=== PATIENT | female | born 1950 | race Caucasian/White ===

== ENCOUNTER 2021-01-28 09:00 | Inpatient (IN) | payer OTHER ==
[~2021-01-28] VITALS: Ht 157.5 cm; Wt 111.1 kg
[2021-01-28] MEDS ORDERED: PLAVIX75 MG PO (09:47)
[2021-01-28] MEDS ORDERED: COREG PO (09:48)
[2021-01-28] MEDS ORDERED: LIPITOR PO (09:48)
[2021-01-28] MEDS ORDERED: CHILDREN'S ASPI81 MG (09:49)
[2021-01-28] MEDS ORDERED: CATAFLAN PO (09:49)
[2021-01-28] MEDS ORDERED: ATORVASTATIN CA40 MG PO (09:50)
[2021-02-02] MEDS ORDERED: GLIPIZIDE-METF1 EAC2 (13:18)
[2021-02-02] MEDS ORDERED: GABAPENTIN300 M2 (13:18)
[2021-02-02] MEDS ORDERED: DICLOFENAC POTA50 MG (13:18)
[2021-02-02] MEDS ORDERED: CARVEDILOL12.5 M1 (13:18)
[2021-02-02] MEDS ORDERED: FLONASE16 GM (13:19)
[2021-02-02] MEDS ORDERED: FAMOTIDINE40 MG (13:19)
[2021-02-02] MEDS ORDERED: MIRTAZAPINE15 MG (13:19)
[2021-02-02] MEDS ORDERED: ARNUITY ELLIP200 MCG (13:19)
[2021-02-02] MEDS ORDERED: ALLERGY RELIEF180 MG (13:19)
[2021-02-04] MEDS ORDERED: ELIQUIS2.5 MG PO (16:24)
[2021-02-04] MEDS ORDERED: PERCOCET 5-3251 EACH PO (16:24)
[2021-02-04] MEDS ORDERED: DUI500 PO (16:24)
== END 2021-02-04 19:27 | DRG 470 ==
LOC: O/R 02-02 05:09 → SURG 02-02 05:09 → SURH 02-02 09:00 → SURG 02-02 13:43
PROVIDERS: ADMIT Orthopaedic Surgery; ATTEND Orthopaedic Surgery
PROC: 0SRD0J9 Replacement of Left Knee Joint with Synthetic Substitute, Cemented, Open Approach (ICD-10-PCS; principal; 2021-02-02 12:00)
PROC: 30233N1 Transfusion of Nonautologous Red Blood Cells into Peripheral Vein, Percutaneous Approach (ICD-10-PCS; 2021-02-03)
DX: M17.12 Unilateral primary osteoarthritis, left knee (principal); D62 Acute posthemorrhagic anemia; Z95.1 Presence of aortocoronary bypass graft

== ENCOUNTER 2022-02-24 08:30 | Inpatient (IN) | payer OTHER ==
[~2022-02-24] VITALS: Ht 154.9 cm; Wt 110.7 kg
[~2022-02-24 08:30] MED LIST: ALLERGY RELIEF180 MG; ARNUITY ELLIP200 MCG; ATORVASTATIN CA40 MG PO; CARVEDILOL12.5 M1; CATAFLAN PO; CHILDREN'S ASPI81 MG; COREG PO; DICLOFENAC POTA50 MG; DUI500 PO; ELIQUIS2.5 MG PO; FAMOTIDINE40 MG; FLONASE16 GM; GABAPENTIN300 M2; GLIPIZIDE-METF1 EAC2; LIPITOR PO; MIRTAZAPINE15 MG; PERCOCET 5-3251 EACH PO; PLAVIX75 MG PO
[2022-03-01] MEDS ORDERED: CLOPIDOGREL BIS75 MG (13:10)
[2022-03-01] MEDS ORDERED: EZETIMIBE10 MG (13:11)
[2022-03-01] MEDS ORDERED: MIRTAZAPINE15 MG (13:11)
[2022-03-01] MEDS ORDERED: METOPROLOL SUCC50 MG (13:11)
[2022-03-01] MEDS ORDERED: FENOFIBRATE160 MG (13:11)
[2022-03-03] MEDS ORDERED: ELIQUIS2.5 MG PO (15:24)
[2022-03-03] MEDS ORDERED: DUI500 PO (15:24)
[2022-03-03] MEDS ORDERED: PERCOCET 5-3251 EACH PO (15:24)
== END 2022-03-03 20:13 | disposition home or self-care (01) | DRG 470 ==
LOC: SURH 03-01 06:39 → O/R 03-01 06:39 → SURG 03-01 08:30 → SURH 03-01 15:51
PROVIDERS: ADMIT Orthopaedic Surgery; ATTEND Orthopaedic Surgery
PROC: 0SRC0J9 Replacement of Right Knee Joint with Synthetic Substitute, Cemented, Open Approach (ICD-10-PCS; principal; 2022-03-01 09:45)
DX: M17.11 Unilateral primary osteoarthritis, right knee (principal); D62 Acute posthemorrhagic anemia; M22.11 Recurrent subluxation of patella, right knee; E66.8 Other obesity; I10 Essential (primary) hypertension; Z95.1 Presence of aortocoronary bypass graft; Z96.651 Presence of right artificial knee joint; I25.10 Atherosclerotic heart disease of native coronary artery without angina pectoris; Z20.822 Contact with and (suspected) exposure to COVID-19; E11.9 Type 2 diabetes mellitus without complications